=== PATIENT | female | born 1955 | race Two or more races ===

== ENCOUNTER 2016-11-17 01:40 | Emergency (ER) | payer OTHER ==
[2016-11-17] MEDS ORDERED: IBUPROFEN 800 MG TAB As Ordered ONE (02:00)
--- NOTE | 2016-11-17 02:30 | EDDOCDS ---
Nurse's Notes [facility] Name: Lillian Milligan Age: 60 yrs Sex: Female : 1955 Arrival Date: 11/17/2016 Time: 01:40 Bed Triage 1 Private MD: Diagnosis: Nondisplaced fracture of proximal phalanx of left little finger Presentation: 11/17 01:44 Presenting complaint: Patient states: Patient reports Sunday night she fell on hand. [facility] Presenting complaint: Patient states: Patient reports having open area to hand. Patient reports falling on back porch rug. Adult Sepsis Screening: The patient does not have new or worsening altered mentation. Patient's respiratory rate is less than 22. Systolic blood pressure is greater than 100. Patient has a qSOFA score of 0- Negative Sepsis Screen. Suicide/Homicide risk assessment- the patient denies having any suicidal and/or homicidal ideations and does not present with any other emotional, behavioral or mental health complaints. Status: Patient is not a supervisor cooler service or dependent. Transition of care: patient was not received from another setting of care. 01:44 Acuity: MARY Level 4 [facility] 01:44 Method Of Arrival: Walkin/Carried/Asstd [facility] Triage Assessment: 01:46 General: Appears in no apparent distress, Behavior is appropriate for age, cooperative. [facility] Pain: Location: left hand Pain currently is 8 out of 10 on a pain scale. Pt Declines HIV testing. The patient is triaged at the bedside. See Assessment in Nurses Notes section of ED record. The patient is triaged at the bedside. See Assessment in Nurses Notes section of ED record. Neurological: Level of Consciousness is awake, alert, obeys commands, Oriented to person, place, time, Speech is normal, Facial symmetry appears normal, Facial symmetry: tongue is midline. Respiratory: Airway is patent Respiratory effort is even, unlabored, Respiratory pattern is regular, symmetrical. GI: Abdomen is non- distended. Derm: Skin is pink, warm & dry. Musculoskeletal: Range of motion intact in all extremities. Historical: - Allergies: No known drug Allergies; - Home Meds: 1. Synthroid 88 mcg Oral tab 1 tab once daily 2. Nexium 40 mg Oral cpDR 1 cap once daily - PMHx: Hypothyroidism; GERD; - PSHx: left arm surgery; Tubal ligation; - Social history: Smoking status: Patient states was never smoker of tobacco. No barriers to communication noted, The patient speaks fluent Persian, Speaks appropriately for age. - Family history: Not pertinent. - : The pt / caregiver states he / she is not on anticoagulants. Home medication list is obtained from the patient. - Exposure Risk Screening:: None identified. Screenin:26 Screening information is obtained from the patient. Fall risk: No risks identified. b Assistance ADL's: requires no assistance with activities of daily living. Abuse/DV Screen: The patient / caregiver reports he/she is: not in a situation that causes fear, pain or injury. Nutritional screening: No deficits noted. Advance Directives: Currently, there is no health care proxy. There is no active DNR order. There is no living will. There is no Power of Burglar Alarm Operator. home support is adequate. Assessment: 02:26 General: Patient instructed on discharge instructions. Patient asked if there were any b questions regarding discharge, patient stated no. Patient signed discharge instructions. Patient discharged in stable condition.. 02:28 General: Notified Terence VARELA of patient's blood pressure. Patient encouraged to [facility] follow up with primary care doctor.. Vital Signs: 01:46 BP 160 / 102 RA Sitting (man/); Pulse 98; Resp 18; Temp 98.1(T); Pulse Ox 95% ; Weight b 93.44 kg (R); Height 5 ft. 1 in. (154.94 cm) (R); Pain 8/10; 01:46 Body Mass Index 38.92 (93.44 kg, 154.94 cm) [facility] Vitals: 01:46 Log In Time: November 17, 2016 at 01:40. [facility] ED Course: 01:41 Patient visited by Gwendolyn Oliva. gjb 01:41 Patient moved to Waiting gjb 01:44 Triage Initiated jmb 01:49 Patient moved to Triage 1 jmb 01:51 Terence Narayanan PA is PHCP. mo1 01:51 Henrik Cronin DO is Attending Physician. mo1 01:51 Patient visited by Terence Narayanan PA. mo1 02:21 Lazarus Fair is Referral Physician. mo1 02:21 Gwyn Hearn is Referral Physician. mo1 02:26 The patient / caregiver is instructed regarding the plan of care and ED course. jmb 02:26 No IV's were initiated during this patient's visit. No procedures done that require jmb assistance. Administered Medications: 02:03 Drug: Ibuprofen 800 mg [ibuprofen 800 mg tablet (1 tabs)] Route: PO; jmb Order Results: There are currently no results for this order. Outcome: 02:21 Discharge ordered by Provider. mo1 02:26 Discharge Assessment: Patient awake, alert and oriented x 3. No cognitive and/or jmb functional deficits noted. Patient verbalized understanding of disposition instructions. Patient awake and alert. obeys commands, Oriented to person, place and time. Patient verbalized understanding of disposition instructions. Patient has no functional deficits. patient administered narcotics - no. The following High Risk Discharge criteria are identified: None. Discharged to home ambulatory, with significant other. Condition: good Condition: stable. Discharge instructions given to patient, Instructed on discharge instructions, follow up and referral plans. medication usage, Demonstrated understanding of instructions, medications, Pt was receptive of discharge instructions/ teaching. No special radiology studies were completed. Property sent home with patient. 02:29 Patient left the ED. jmb Signatures: Terence Narayanan PA PA mo1 Aftab GrajedaRN RN Gwendolyn Thornton REBECCA
--- NOTE | 2016-11-17 02:30 | EDDOCDS ---
Physician Documentation [facility] Name: Lillian Milligan Age: 60 yrs Sex: Female : 1955 Arrival Date: 11/17/2016 Time: 01:40 Bed Triage 1 Private MD: Disposition: 11/17/16 02:21 Discharged to Home/Self Care. Impression: Nondisplaced fracture of proximal phalanx of left little finger. - Condition is Stable. - Discharge Instructions: Boxer's Fracture, Finger Fracture. - Prescriptions for Ibuprofen 800 mg Oral Tablet - take 1 tablet by ORAL route every 8 hours As needed take with food; 30 tablet. - Medication Reconciliation, Local Pharmacy Hours form. - Follow up: Lazarus Fair; When: Call to arrange an appointment; Reason: Recheck today's complaints, Continuance of care. Follow up: Gwyn Hearn; When: Call to arrange an appointment; Reason: Recheck today's complaints, Continuance of care. - Problem is new. - Symptoms are unchanged. Historical: - Allergies: No known drug Allergies; - Home Meds: 1. Synthroid 88 mcg Oral tab 1 tab once daily 2. Nexium 40 mg Oral cpDR 1 cap once daily - PMHx: Hypothyroidism; GERD; - PSHx: left arm surgery; Tubal ligation; - Social history: Smoking status: Patient states was never smoker of tobacco. No barriers to communication noted, The patient speaks fluent Bangladeshi, Speaks appropriately for age. - Family history: Not pertinent. - : The pt / caregiver states he / she is not on anticoagulants. Home medication list is obtained from the patient. - Exposure Risk Screening:: None identified. Vital Signs: 11/17 01:46 BP 160 / 102 RA Sitting (man/); Pulse 98; Resp 18; Temp 98.1(T); Pulse Ox 95% ; Weight jmb 93.44 kg / 206 lbs (R); Height 5 ft. 1 in. (154.94 cm) (R); Pain 8/10; 01:46 Body Mass Index 38.92 (93.44 kg, 154.94 cm) jmb Procedures: 02:22 caitlin taping of left fifth to fourth finger and ulnar gutter splint applied to left mo1 hand/wrist. pt is NVI before and after splint applied. pt tolerated well. pain improved . MDM: 01:56 Ibuprofen 800 mg PO once ordered. mo1 01:56 Hand, Complete Ordered. EDMS 02:22 Splint Affected Extremity ordered. mo1 02:22 Sling ordered. mo1 Administered Medications: 02:03 Drug: Ibuprofen 800 mg [ibuprofen 800 mg tablet (1 tabs)] Route: PO; tarsha Signatures: Dispatcher [employer] EDTerence Scanlon PA PA mo1 Aftab GrajedaRN RN tarsha MTDD
--- NOTE | 2016-11-17 08:32 | REP ---
Clinical: Trauma. Technique: AP, lateral, bilateral oblique views of the right hand along with scaphoid view. Findings: There is an acute fracture at the base of the fifth proximal phalanx. Underlying osteopenia and arthritic degenerative changes are appreciated throughout the hand and wrist. Carpal bones appear grossly intact. Impression: Closed nondisplaced fracture at the base of the fifth proximal phalanx. Signed by Eddie Steen MD 11/17/2016 08:23 A
--- NOTE | 2016-11-19 03:31 | EDDOCDS ---
Nurse's Notes [facility] Name: Lillian Milligan Age: 60 yrs Sex: Female : 1955 Arrival Date: 11/17/2016 Time: 01:40 Bed Triage 1 Private MD: Diagnosis: Nondisplaced fracture of proximal phalanx of left little finger Presentation: 11/17 01:44 Presenting complaint: Patient states: Patient reports Sunday night she fell on hand. [facility] Presenting complaint: Patient states: Patient reports having open area to hand. Patient reports falling on back porch rug. Adult Sepsis Screening: The patient does not have new or worsening altered mentation. Patient's respiratory rate is less than 22. Systolic blood pressure is greater than 100. Patient has a qSOFA score of 0- Negative Sepsis Screen. Suicide/Homicide risk assessment- the patient denies having any suicidal and/or homicidal ideations and does not present with any other emotional, behavioral or mental health complaints. Status: Patient is not a valet service attendant or dependent. Transition of care: patient was not received from another setting of care. 01:44 Acuity: MARY Level 4 [facility] 01:44 Method Of Arrival: Walkin/Carried/Asstd [facility] Triage Assessment: 01:46 General: Appears in no apparent distress, Behavior is appropriate for age, cooperative. [facility] Pain: Location: left hand Pain currently is 8 out of 10 on a pain scale. Pt Declines HIV testing. The patient is triaged at the bedside. See Assessment in Nurses Notes section of ED record. The patient is triaged at the bedside. See Assessment in Nurses Notes section of ED record. Neurological: Level of Consciousness is awake, alert, obeys commands, Oriented to person, place, time, Speech is normal, Facial symmetry appears normal, Facial symmetry: tongue is midline. Respiratory: Airway is patent Respiratory effort is even, unlabored, Respiratory pattern is regular, symmetrical. GI: Abdomen is non- distended. Derm: Skin is pink, warm & dry. Musculoskeletal: Range of motion intact in all extremities. Historical: - Allergies: No known drug Allergies; - Home Meds: 1. Synthroid 88 mcg Oral tab 1 tab once daily 2. Nexium 40 mg Oral cpDR 1 cap once daily - PMHx: Hypothyroidism; GERD; - PSHx: left arm surgery; Tubal ligation; - Social history: Smoking status: Patient states was never smoker of tobacco. No barriers to communication noted, The patient speaks fluent Faroese, Speaks appropriately for age. - Family history: Not pertinent. - : The pt / caregiver states he / she is not on anticoagulants. Home medication list is obtained from the patient. - Exposure Risk Screening:: None identified. Screenin:26 Screening information is obtained from the patient. Fall risk: No risks identified. b Assistance ADL's: requires no assistance with activities of daily living. Abuse/DV Screen: The patient / caregiver reports he/she is: not in a situation that causes fear, pain or injury. Nutritional screening: No deficits noted. Advance Directives: Currently, there is no health care proxy. There is no active DNR order. There is no living will. There is no Power of Ritual Circumciser. home support is adequate. Assessment: 02:26 General: Patient instructed on discharge instructions. Patient asked if there were any b questions regarding discharge, patient stated no. Patient signed discharge instructions. Patient discharged in stable condition.. 02:28 General: Notified Terence VARELA of patient's blood pressure. Patient encouraged to [facility] follow up with primary care doctor.. Vital Signs: 01:46 BP 160 / 102 RA Sitting (man/); Pulse 98; Resp 18; Temp 98.1(T); Pulse Ox 95% ; Weight b 93.44 kg (R); Height 5 ft. 1 in. (154.94 cm) (R); Pain 8/10; 01:46 Body Mass Index 38.92 (93.44 kg, 154.94 cm) [facility] Vitals: 01:46 Log In Time: November 17, 2016 at 01:40. [facility] ED Course: 01:41 Patient visited by Gwendolyn Oliva. gjb 01:41 Patient moved to Waiting gjb 01:44 Triage Initiated jmb 01:49 Patient moved to Triage 1 jmb 01:51 Terence Narayanan PA is PHCP. mo1 01:51 Henrik Cronin DO is Attending Physician. mo1 01:51 Patient visited by Terence Narayanan PA. mo1 02:21 Lazarus Fair is Referral Physician. mo1 02:21 Gwyn Hearn is Referral Physician. mo1 02:26 The patient / caregiver is instructed regarding the plan of care and ED course. maxx 02:26 No IV's were initiated during this patient's visit. No procedures done that require jmb assistance. 08:42 Hand, Complete Returned. [facility] 11/18 09:49 T-Sheet-- Draft Copy was scanned into [employer] and attached to record. gb Administered Medications: 11/17 02:03 Drug: Ibuprofen 800 mg [ibuprofen 800 mg tablet (1 tabs)] Route: PO; jmb Order Results: Radiology Order: Hand, Complete Test: Hand, Complete REASON FOR EXAMINATION: Trauma; Clinical: Trauma.; ; Technique: AP, lateral, bilateral oblique views of the right hand along with; scaphoid view.; ; Findings:; There is an acute fracture at the base of the fifth proximal phalanx. Underlying; osteopenia and arthritic degenerative changes are appreciated throughout the hand; and wrist. Carpal bones appear grossly intact.; ; Impression:; Closed nondisplaced fracture at the base of the fifth proximal phalanx.; ; ; Signed by; Eddie Steen MD 11/17/2016 08:23 A; Outcome: 02:21 Discharge ordered by Provider. mo1 02:26 Discharge Assessment: Patient awake, alert and oriented x 3. No cognitive and/or jmb functional deficits noted. Patient verbalized understanding of disposition instructions. Patient awake and alert. obeys commands, Oriented to person, place and time. Patient verbalized understanding of disposition instructions. Patient has no functional deficits. patient administered narcotics - no. The following High Risk Discharge criteria are identified: None. Discharged to home ambulatory, with significant other. Condition: good Condition: stable. Discharge instructions given to patient, Instructed on discharge instructions, follow up and referral plans. medication usage, Demonstrated understanding of instructions, medications, Pt was receptive of discharge instructions/ teaching. No special radiology studies were completed. Property sent home with patient. 02:29 Patient left the ED. tarsha Signatures: Dispatcher [facility] Karin Dooley, Terence Samayoa PA PA mo1 Aftab Grajeda RN RN Gwendolyn Thornton Chart Complete MTDD
--- NOTE | 2016-11-19 03:31 | EDDOCDS ---
Physician Documentation [facility] Name: Lillian Milligan Age: 60 yrs Sex: Female : 1955 Arrival Date: 11/17/2016 Time: 01:40 Bed Triage 1 Private MD: Disposition: 11/17/16 02:21 Discharged to Home/Self Care. Impression: Nondisplaced fracture of proximal phalanx of left little finger. - Condition is Stable. - Discharge Instructions: Boxer's Fracture, Finger Fracture. - Prescriptions for Ibuprofen 800 mg Oral Tablet - take 1 tablet by ORAL route every 8 hours As needed take with food; 30 tablet. - Medication Reconciliation, Local Pharmacy Hours form. - Follow up: Lazarus Fair; When: Call to arrange an appointment; Reason: Recheck today's complaints, Continuance of care. Follow up: Gwyn Hearn; When: Call to arrange an appointment; Reason: Recheck today's complaints, Continuance of care. - Problem is new. - Symptoms are unchanged. Historical: - Allergies: No known drug Allergies; - Home Meds: 1. Synthroid 88 mcg Oral tab 1 tab once daily 2. Nexium 40 mg Oral cpDR 1 cap once daily - PMHx: Hypothyroidism; GERD; - PSHx: left arm surgery; Tubal ligation; - Social history: Smoking status: Patient states was never smoker of tobacco. No barriers to communication noted, The patient speaks fluent Iranian, Speaks appropriately for age. - Family history: Not pertinent. - : The pt / caregiver states he / she is not on anticoagulants. Home medication list is obtained from the patient. - Exposure Risk Screening:: None identified. Vital Signs: 11/17 01:46 BP 160 / 102 RA Sitting (man/); Pulse 98; Resp 18; Temp 98.1(T); Pulse Ox 95% ; Weight jmb 93.44 kg / 206 lbs (R); Height 5 ft. 1 in. (154.94 cm) (R); Pain 8/10; 01:46 Body Mass Index 38.92 (93.44 kg, 154.94 cm) jmb Procedures: 02:22 caitlin taping of left fifth to fourth finger and ulnar gutter splint applied to left mo1 hand/wrist. pt is NVI before and after splint applied. pt tolerated well. pain improved . MDM: 01:56 Ibuprofen 800 mg PO once ordered. mo1 01:56 Hand, Complete Ordered. EDMS 02:22 Splint Affected Extremity ordered. mo1 02:22 Sling ordered. mo1 03:03 Financial registration complete. [facility] 11/18 09:49 T-Sheet-- Draft Copy was scanned into [employer] and attached to record. gb Administered Medications: 11/17 02:03 Drug: Ibuprofen 800 mg [ibuprofen 800 mg tablet (1 tabs)] Route: PO; tarsha Signatures: Dispatcher [employer] EDMS Karin Dooley, Reg Reg gb Terence Narayanan, NICHOLE PA mo1 Aftab Grajeda RN RN Kristine Larson [facility] The chart was reviewed and I authenticate all verbal orders and agree with the evaluation and treatment provided.Attachments: 11/18 09:49 T-Sheet-- Draft Copy gb Chart Complete MTDD
--- NOTE | 2016-11-19 03:31 | EDDOCDS ---
Physician Documentation [facility] Name: Lillian Milligan Age: 60 yrs Sex: Female : 1955 Arrival Date: 11/17/2016 Time: 01:40 Bed Triage 1 Private MD: Disposition: 11/17/16 02:21 Discharged to Home/Self Care. Impression: Nondisplaced fracture of proximal phalanx of left little finger. - Condition is Stable. - Discharge Instructions: Boxer's Fracture, Finger Fracture. - Prescriptions for Ibuprofen 800 mg Oral Tablet - take 1 tablet by ORAL route every 8 hours As needed take with food; 30 tablet. - Medication Reconciliation, Local Pharmacy Hours form. - Follow up: Lazarus Fair; When: Call to arrange an appointment; Reason: Recheck today's complaints, Continuance of care. Follow up: Gwyn Hearn; When: Call to arrange an appointment; Reason: Recheck today's complaints, Continuance of care. - Problem is new. - Symptoms are unchanged. Historical: - Allergies: No known drug Allergies; - Home Meds: 1. Synthroid 88 mcg Oral tab 1 tab once daily 2. Nexium 40 mg Oral cpDR 1 cap once daily - PMHx: Hypothyroidism; GERD; - PSHx: left arm surgery; Tubal ligation; - Social history: Smoking status: Patient states was never smoker of tobacco. No barriers to communication noted, The patient speaks fluent Anguillan, Speaks appropriately for age. - Family history: Not pertinent. - : The pt / caregiver states he / she is not on anticoagulants. Home medication list is obtained from the patient. - Exposure Risk Screening:: None identified. Vital Signs: 11/17 01:46 BP 160 / 102 RA Sitting (man/); Pulse 98; Resp 18; Temp 98.1(T); Pulse Ox 95% ; Weight jmb 93.44 kg / 206 lbs (R); Height 5 ft. 1 in. (154.94 cm) (R); Pain 8/10; 01:46 Body Mass Index 38.92 (93.44 kg, 154.94 cm) jmb Procedures: 02:22 caitlin taping of left fifth to fourth finger and ulnar gutter splint applied to left mo1 hand/wrist. pt is NVI before and after splint applied. pt tolerated well. pain improved . MDM: 01:56 Ibuprofen 800 mg PO once ordered. mo1 01:56 Hand, Complete Ordered. EDMS 02:22 Splint Affected Extremity ordered. mo1 02:22 Sling ordered. mo1 03:03 Financial registration complete. [facility] 11/18 09:49 T-Sheet-- Draft Copy was scanned into [employer] and attached to record. gb Administered Medications: 11/17 02:03 Drug: Ibuprofen 800 mg [ibuprofen 800 mg tablet (1 tabs)] Route: PO; tarsha Signatures: Dispatcher [employer] EDMS Karin Dooley, Reg Reg gb Terence Narayanan, NICHOLE PA mo1 Aftab Grajeda RN RN Kristine Larson [facility] The chart was reviewed and I authenticate all verbal orders and agree with the evaluation and treatment provided.Attachments: 11/18 09:49 T-Sheet-- Draft Copy gb Chart Complete MTDD
== END 2016-11-17 02:29 | disposition home or self-care (01) ==
LOC: M ED 01:40
DX: S62.667A Nondisplaced fracture of distal phalanx of left little finger, initial encounter for closed fracture (principal); W19.XXXA Unspecified fall, initial encounter; Y92.89 Other specified places as the place of occurrence of the external cause; Y93.9 Activity, unspecified; Y99.9 Unspecified external cause status; E03.9 Hypothyroidism, unspecified; K21.9 Gastro-esophageal reflux disease without esophagitis; Z79.899 Other long term (current) drug therapy

== ENCOUNTER → 2017-02-20 | Outpatient (CLI) | payer OTHER ==
--- NOTE | 2017-02-20 16:25 | REP ---
BILATERAL MAMMOGRAM: Bilateral mammography performed in the MLO and CC projections and compared to multiple prior exams, most recent of which is 02/09/2015. A new well defined round nodule is seen in the upper inner left breast. This measures about 9 mm in diameter. Parenchymal pattern is otherwise unchanged with no other evidence of new mass or clustered microcalcifications. IMPRESSION: ACR 0 incomplete. New well defined 9 mm nodule upper inner left breast. Recommend spot compression views and ultrasound to further evaluation. ACR 0 incomplete. BI-RADS/ACR category 0 mammogram, incomplete. Additional imaging and/or prior images are needed before a final assessment can be assigned. This mammogram was interpreted with the aid of an FDA-approved computer-aided detection system. The patient states she has not had a clinical breast exam in over a year. The patient letter being requested is M0. Signed by Spenser Styles MD 02/20/2017 04:26 P
== END ==
LOC: M RAD 14:34
PROVIDERS: ATTEND Physician Assistant
DX: R92.2 Inconclusive mammogram (principal)

== ENCOUNTER → 2017-02-27 | Outpatient (CLI) | payer OTHER ==
--- NOTE | 2017-02-27 13:18 | REP ---
Digital diagnostic unilateral left breast mammography with CAD and focused left breast sonography: History: Screening mammography from February 20, 2017 was BIRADS category 0 because of a nodular density superiorly and medially in the posterior aspect of the left breast. Comparison is also made with prior mammography from February 09, 2015 and February 06, 2014. Findings: Magnified focal spot compression CC, MLO and true ML views of the left breast demonstrate that the 9 mm nodule persists in the posterior third of the left breast superiorly and medially. No other mammographic finding. Sonographic findings: The left breast is scanned superiorly and medially 9 o'clock to 12 o'clock. At 10 o'clock, 5.3 cm from the nipple there is a cyst measuring 3 x 2 x 2 mm. At 10 o'clock in the left breast, 7.8 cm from the nipple there is an echogenic area with a hypoechoic center measuring 7 x 5 x 7 mm. The hypoechoic center has an echogenic zone around it and there is a hypoechoic thin rim surrounding that. The adjacent fat is slightly hyperechoic suggesting inflammatory change. This is felt to correspond to the mammographic opacity. Impression: Complex noncystic lesion upper outer quadrant left breast with corresponding mammographic opacity. BIRADS category 4 suspicious left breast imaging. Ultrasound-guided needle biopsy and marker clip placement with post clip placement unilateral left breast mammography recommended. This mammogram was interpreted with the aid of an FDA-approved computer-aided detection system. The patient letter being requested is M4. The patient states that she/he has not had a clinical breast exam in over a year. Signed by Mario Mehta MD 02/27/2017 03:39 P
== END ==
LOC: M RAD 11:38
PROVIDERS: ATTEND Physician Assistant
DX: R92.2 Inconclusive mammogram (principal)
CPT/HCPCS: 76642; G0206

== ENCOUNTER → 2017-03-20 | Outpatient (CLI) | payer OTHER ==
[~2017-03-20] MED LIST: LIDOCAINE 1% MDV 20ML VIAL As Ordered ONE
--- NOTE | 2017-03-20 16:25 | REP ---
POST-BIOPSY MAMMOGRAM LEFT BREAST: Post-biopsy mammogram left breast is performed in multiple projections. A metallic clip is seen at the site of the biopsied nodule in the upper inner left breast. Signed by Spenser Styles MD 03/21/2017 04:52 P
--- NOTE | 2017-03-21 06:23 | REP ---
ULTRASOUND GUIDED LEFT BREAST BIOPSY: The procedure was performed under the direct supervision of Dr. Styles. The patient has a history of a complex noncystic lesion in the upper outer quadrant of the left breast seen on a previous ultrasound dated 02/27/2017. The risks and benefits of the procedure were explained to the patient and informed consent was obtained. The left breast nodule was localized using ultrasound guidance. The skin was prepped and draped in a sterile fashion. 1% lidocaine was used as a local anesthetic. Using fluoroscopic guidance, a 13-gauge suction assisted Mammotome needle was inserted and five core biopsy samples were obtained. A marker clip was placed at the biopsy site. The patient tolerated the procedure well and there were no immediate complications. After the appropriate amount of monitored convalescence, the patient was discharged from the department. Reviewed by LENORA Negron 03/21/2017 03:40 PEdited and Signed by Spenser Styles MD 03/21/2017 04:51 P
== END ==
LOC: M RADPRO 14:30
PROVIDERS: ATTEND Surgery
DX: D24.2 Benign neoplasm of left breast (principal); Z78.0 Asymptomatic menopausal state; Z87.891 Personal history of nicotine dependence; Z79.899 Other long term (current) drug therapy
CPT/HCPCS: 19083; 88305; G0206